=== PATIENT | female | born 1985 | race Caucasian/White ===

== ENCOUNTER 2017-04-01 18:57 | Emergency (ER) | payer BC, OTHER ==
[~2017-04-01] VITALS: Ht 167.6 cm; Wt 100.0 kg
[2017-04-01 19:00] VITALS: Ht 167.6 cm; Wt 100.0 kg
[2017-04-01] MEDS ORDERED: morphine 4 MG/ML VIAL IV STA (21:38)
[2017-04-01] MEDS ORDERED: ONDANSETRON 4 MG INJ IV STA (21:38)
[2017-04-01 22:04] LABS: BASOPHILS % 0.4 % (0.0-2.0); EOSINOPHILS # 0.1 10^3/ul (0.0-0.5); EOSINOPHILS % 1.1 % (0.0-7.0); HEMATOCRIT 43.6 % (37.0-47.0); HEMOGLOBIN 14.4 g/dl (12.0-16.0); LYMPHOCYTES # 2.9 10^3/ul (0.8-2.9); LYMPHOCYTES % 25.8 % (15.0-51.0); MEAN CORPUSCULAR HEMOGLOBIN 28.8 pg (29.0-33.0); MEAN CORPUSCULAR VOLUME 87.2 fl (82.0-101.0); MEAN PLATELET VOLUME 11.1 fl (7.4-10.4); MONOCYTE # 0.4 10^3/ul (0.3-0.9); MONOCYTES % 3.9 % (0.0-11.0); NEUTROPHIL # 7.8 10^3/ul (1.6-7.5); NEUTROPHILS % 68.6 % (39.0-77.0); PLATELET COUNT 367 10^3/UL (140-415); WHITE BLOOD COUNT 11.4 10^3/ul (4.8-10.8)
[2017-04-01 22:18] LABS: INR 0.86; PROTIME 11.7 Sec (12.2-14.2); PT RATIO 0.9
[2017-04-01 22:34] LABS: CREATININE 0.65 mg/dl (0.44-1.00); POTASSIUM 3.3 mmol/L (3.5-5.1)
--- NOTE | 2017-04-01 22:46 | RADRPT ---
PROCEDURE: Noncontrast CT Head. CLINICAL INDICATION: Headache TECHNIQUE: Noncontrast CT of the head was obtained. The administered radiation dose was CTDI vol = 44.11 mGy, DLP = 720.23 mGy-cm. One or more of the following dose reduction techniques were used: Au tomated exposure control, Adjustment of the mA and/or kV according to patient size, or Use of iterat feliz reconstruction technique. COMPARISON: There are no similar studies submitted for comparison. FINDINGS: There is no acute intracranial hemorrhage, midline shift, or mass effect. The cerebral lloyd-white ma tter differentiation appears preserved. No extra-axial collection is seen. The cerebral sulci and ve ntricles are within normal limits in size and configuration for patient's age. A 9 mm sublenticular or choroidal fissure cyst is noted. The basal cisterns are preserved. The brainstem and cerebellum a re grossly unremarkable, although suboptimally evaluated with CT secondary to beam-hardening artifac t. The visualized paranasal sinuses and mastoid air cells are clear. No acute fracture or suspicious osseous lesion is identified. IMPRESSION: No evidence of an acute intracranial process. Unremarkable noncontrast CT of the brain. RPTAT: [facility] Physician Vidya Date Time Electronically viewed and signed by Physician Vidya on 04/01/2017 22:46 NARA/
[2017-04-01] MEDS ORDERED: IBUP-1542 PO (23:17)
[2017-04-01] MEDS ORDERED: ONDA-43 PO (23:22)
[2017-04-01] MEDS ORDERED: ONDANSETRON (ODT) 4 MG TAB ODT STA (23:43)
[2017-04-01 23:53] VITALS: BP 115/78; PULSE 77; RESP 18; TEMP 98.5
--- NOTE | 2017-04-02 01:13 | ERD ---
ER Documentation Chief Complaint Date/Time DATE: 04/02/17 TIME: 01:09 Chief Complaint leo with nausea and vomiting for a week HPI This is a 31-year-old female that presents to the ER with a weeklong history of a headache that is located all over her head. Patient states she has had nausea and nonbilious nonbloody vomiting secondary to headache. Patient has been taking Tylenol for the last week, which helps her headache, however the headache is always there. Patient denies any fevers or chills. She denies any eye pain, vision loss or vision changes. Denies any head trauma. Patient thought that her headache was may be related to her eyes that she does wear glasses and contacts. 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 Patient does not have a known history of hypertension, however her blood pressure was slightly elevated in the ER. Denies any chest pain shortness of breath. ROS 12 point review of systems was done, all negative except per HPI. Medications Home Meds Active Scripts Ondansetron Hcl* (Zofran*) 4 Mg Tab, 4 MG PO Q4H Y for NAUSEA AND OR VOMITING for 5 Days, TAB Prov:ELPIDIO TOURE 04/01/17 Ibuprofen* (Motrin*) 600 Mg Tab, 600 MG PO Q6, #30 TAB Prov:ELPIDIO TOURE 04/01/17 Allergies Allergies: Coded Allergies: meperidine (Verified Allergy, Severe, anaphylaxis, 04/01/17) PMhx/Soc Medical and Surgical Hx: pt denies Medical Hx, pt denies Surgical Hx Hx Alcohol Use: No Hx Substance Use: No Hx Tobacco Use: No Smoking Status: Never smoker Physical Exam Vitals Vital Signs Date Time Temp Pulse Resp B/P Pulse Ox O2 Delivery O2 Flow Rate FiO2 04/01/17 23:53 98.5 77 18 115/78 100 Room Air 04/01/17 19:00 98.5 106 18 157/79 100 Physical Exam GENERAL: The patient is well developed and appropriate for usual state of health , in no apparent distress. HEENT: Atraumatic. Conjunctivae are pink. Pupils equal, round, and reactive to light. Extraocular muscles are grossly intact. Bilateral tympanic membranes are clear with no evidence of erythema, bulging or perforation. No sinus tenderness. NECK: C-spine is soft and supple. There is no cervical lymphadenopathy. CHEST: Clear to auscultation bilaterally. There are no rales, wheezes or rhonchi. HEART: Regular rate and rhythm. No murmurs, clicks, rubs or gallops. EXTREMITIES: Equal pulses bilaterally. There is no peripheral clubbing, cyanosis or edema. No focal swelling or erythema. Full range of motion. Grossly neurovascularly intact. NEURO: Alert and oriented. Cranial nerves II through XII are intact. Motor strength in all 4 extremities with 5/5 strength. Sensation grossly intact. Normal speech and gait. Negative Rhomberg. +2 DTRs. SKIN: There is no apparent rash or petechia. The skin is warm and dry. Result Diagram: 04/01/17215304/01/172153 Results 24 hrs Laboratory Tests Test 04/01/17 21:54 White Blood Count 11.410^3/ul Red Blood Count 5.0010^6/ul Hemoglobin 14.4g/dl Hematocrit 43.6% Mean Corpuscular Volume 87.2fl Mean Corpuscular Hemoglobin 28.8pg Mean Corpuscular Hemoglobin Concent 33.0g/dl Red Cell Distribution Width 13.0% Platelet Count 54870^3/UL Mean Platelet Volume 11.1fl Neutrophils % 68.6% Lymphocytes % 25.8% Monocytes % 3.9% Eosinophils % 1.1% Basophils % 0.4% Nucleated Red Blood Cells % 0.0/100WBC Neutrophils # 7.810^3/ul Lymphocytes # 2.910^3/ul Monocytes # 0.410^3/ul Eosinophils # 0.110^3/ul Basophils # 0.010^3/ul Nucleated Red Blood Cells # 0.010^3/ul Erythrocyte Sedimentation Rate 15mm/Hr Prothrombin Time 11.7Sec Prothrombin Time Ratio 0.9 INR International Normalized Ratio 0.86 Activated Partial Thromboplast Time 28.0Sec Sodium Level 142mmol/L Potassium Level 3.3mmol/L Chloride Level 104mmol/L Carbon Dioxide Level 27mmol/L Anion Gap 14 Blood Urea Nitrogen 7mg/dl Creatinine 0.65mg/dl Glucose Level 116mg/dl Calcium Level 10.0mg/dl Current Medications Medications (Trade) Dose Ordered Sig/Le Route PRN Reason Start Time Stop Time Status Last Admin Dose Admin Ondansetron HCl (Zofran Inj) 4 mg ONCE STAT IV 04/01/17 21:38 04/01/17 21:41 DC 04/01/17 22:03 Morphine Sulfate (morphine) 6 mg ONCE STAT IV 04/01/17 21:38 04/01/17 21:41 DC 04/01/17 22:03 Ondansetron HCl (Zofran Odt) 4 mg ONCE STAT ODT 04/01/17 23:43 04/01/17 23:44 DC Procedures/MDM I discussed this case with my supervising physician Dr. Prabhakar. She does not have a past medical history of hypertension, suspicion for papilledema secondary to hypertension is low, however patient should get her blood pressure checked as soon as possible by her primary care doctor. CT imaging of the head was done and was negative for any intracranial masses or any intraocular abnormalities. ESR was negative for temporal arteritis or any other inflammatory problems. Patient did not complain of any vision loss or vision changes, at this time suspicion for acute etiology is low. She does not have any eye complaints. Patient's headache was controlled in the ER. Was told to urgently follow up with an ash conveyor operator at [facility], she was given information for this clinic and she was told to go tomorrow. Return to ER if symptoms worsen. Decision making was shared with the patient she understands and agrees with plan. Departure Diagnosis: Primary Impression: Headache Condition: Stable Patient Instructions: Self-Care for Headaches Referrals: LAMAR KHALIL (PCP) [facility] Hours: Mon - Fri 9:00 AM - 5:00 PM Additional Instructions: Call your primary care doctor TOMORROW for an appointment during the next 1-2 days.See the doctor sooner or return here if your condition worsens before your appointment time. ELPIDIO TOURE Apr 02, 2017 01:13
== END 2017-04-01 23:57 | disposition home or self-care (01) ==
LOC: FTE 18:57
DX: R51 Headache (principal); R11.2 Nausea with vomiting, unspecified; R07.9 Chest pain, unspecified
CPT/HCPCS: 70450; 80048; 85025; 85610; 85651; 85730; J2270; J2405; 36415; 96374; 96375